=== PATIENT | female | born 2000 | race Caucasian/White ===

== ENCOUNTER 2021-06-29 17:32 | Outpatient (CLI) | payer OTHER ==
[2021-06-29 19:27] VITALS: BP 108/64; PULSE 81; RESP 18; TEMP 98.1
--- NOTE | 2021-07-01 17:09 | P.MSEPDOC ---
Presenting Problems - Arrival Data Date of Arrival on Unit: 06/29/21 Time of Arrival on Unit: 17:32 Mode of Transport: Ambulatory - Complaint OB-Reason for Admission/Chief Complaint: Rule Out SROM Comment: Pt states that she has been possible leaking since Sunday. Medical History - Information : 1 Para: 0 Term: 0 : 0 Abortions: Spontaneous or Elective: 0 Number of Living Children: 0 - Gestational Age Gestational Age by JOHN (wks/days): 34 Weeks and 5 Days Review of Systems - Review of Systems Constitutional: No problems Breast: No problems ENT: No problems Cardiovascular: No problems Respiratory: No problems Gastrointestinal: No problems Genitourinary: No problems Musculoskeletal: No problems Neurological: No problems Skin: No problems Vital Signs - Temperature Temperature: 98.1 F Temperature Source: Oral - Pulse Right Pulse Rate: 81 Pulse Assessment Method: Automatic Cuff - Respirations Respiratory Rate: 18 Oxygen Delivery Method: Room Air O2 Sat by Pulse Oximetry: 98 - Blood Pressure Right Arm Blood Pressure: 108/64 Blood Pressure Mean: 78 Blood Pressure Source: Automatic Cuff Medical Screen Scoring - Cervical Exam Dilation (cm): 0 Effacement (%): 100 Membranes: Intact - Assessment - Baby A Baseline FHR: 130 Heart Rate - NICHD Category: Category I (Normal) NST: Reactive Physician Notification - Physician Notified Physician Notified Date: 06/29/21 Physician Notified Time: 18:15 Physician: Precious Epperson Order Received: Yes Maternal Triage Index - Maternal Triage Index Presenting for scheduled procedure w/no complaint: No - Stat/Priority 1 Stat Priority 1: No - Urgent/Priority 2 Urgent Priority 2: No - Prompt/Priority 3 Prompt Priority 3: Yes Criteria Met for Priority 3: >34wks with possible SROM Disposition - Disposition OB Disposition: Discharge to home Discharge Date: 06/29/21 Discharge Time: 18:20 I agree with the RN Medical Screening Exam: Yes Case reviewed; plan agreed upon as documented in EMR&OBIX.: Yes Diagnosis: FALSE LABOR BEFORE 37 COMPLETED WEEKS OF GEST, THIRD TRI
== END 2021-06-29 18:20 | disposition home or self-care (01) ==
LOC: FBPOP 17:32
PROVIDERS: ATTEND Obstetrics & Gynecology
DX: O47.03 False labor before 37 completed weeks of gestation, third trimester (principal); Z3A.34 34 weeks gestation of pregnancy
CPT/HCPCS: 59025; 84112; 99213

== ENCOUNTER 2021-07-04 10:34 | Observation (INO) | payer OTHER ==
[2021-07-04] MEDS ORDERED: ONDANSETRON 4 MG/2 ML VIAL IVP STA (11:10)
[2021-07-04] MEDS: DEXTROSE 5%-0.9% NACL 1,000 ML IV SCH ×2 (11:29→23:40)
[2021-07-04 11:45] LABS: Amorphous Sediment,Urine Occasional /hpf; Appearance,Urine Cloudy (Clear); Bacteria,Urine Few /hpf; Bilirubin,Urine Negative (Negative); Blood,Urine Negative (Negative); Color,Urine Yellow; Glucose,Urine (UA) Negative (Negative); Ketones,Urine 1+ (Negative); Leukocyte Esterase,Urine Negative (Negative); Mucus,Urine Rare /hpf; Nitrite,Urine Negative (Negative); Protein,Urine Negative (Negative); RBC,Urine 2 /hpf (0-5); Specific Gravity,Urine 1.014 (1.001-1.035); Squamous Epithelial Cell,Urine 2 /hpf (0-4); Urobilinogen,Urine <2.0 mg/dL (<2.0); WBC,Urine 4 /hpf (0-5)
--- NOTE | 2021-07-04 12:17 | US ---
EXAMINATION TYPE: US OB >= 14 wk fetus DATE OF EXAM: 07/04/2021 COMPARISON: None CLINICAL HISTORY: Complete OB US Nausea and vomiting cramping.Hx of low JAYDA 4.8cm in office last week TECHNIQUE: Transabdominal (TA) GESTATIONAL AGE / DATING Physician Established: (35 weeks/3 days) EDC: 08/05/2021 Dates by LMP: (35 weeks/3 days) EDC: 08/05/2021 Dates by First Scan: (18 weeks/5 days) EDC: 08/07/2021 Dates by Current Scan: (33 weeks/0 days) EDC: 08/22/2021 SURVEY IUP: Single PLACENTA: Fundal PREVIA: No Previa JAYDA: 5.6 cm CERVICAL LENGTH (transabdominal: norm > 3.0cm): 3.2 cm BIOMETRY PRESENTATION: Breech LIE: Breech BPD: 8.14 cm 32 weeks 5 days HC: 32.18 cm 36 weeks / 3 days AC: 27.49 cm 31 weeks / 4 days FL: 5.98 cm 31 weeks / 3 days ESTIMATED WEIGHT IN GRAMS: 1878 grams ESTIMATED WEIGHT IN LBS/OZ: 4 lbs. 2 oz. WEIGHT PERCENTAGE BASED ON ESTABLISHED DATES: <2% HC/AC: 1.17 cm Normal FL/AC: 73% Normal HEART RATE: 153 bpm RHYTHM: Normal IMPRESSION: Single viable intrauterine in the breech presentation.
[2021-07-04] MEDS: LACTATED RINGERS 1,000 ML IV SCH ×2 (12:57→23:40)
[2021-07-04] MEDS: BETAMET ACET-BETAMETH SOD PHOS 6 MG/ML MDV IM SCH (12:57)
[2021-07-04 14:17] LABS: Basophils % (A) 0 %; Eosinophils % (A) 0 %; HCT 38.2 % (34.0-46.0); HGB 12.3 gm/dL (11.4-16.0); Lymphocytes # (A) 0.7 k/uL (1.0-4.8); Lymphocytes % (A) 5 %; MCH 29.8 pg (25.0-35.0); MCHC 32.1 g/dL (31.0-37.0); MCV 92.9 fL (80.0-100.0); Mean Platelet Volume 9.3; Monocytes # (A) 0.6 k/uL (0-1.0); Monocytes % (A) 4 %; Neutrophils # (A) 13.1 k/uL (1.3-7.7); Neutrophils % (A) 90 %; Platelet Count 193 k/uL (150-450); RBC 4.11 m/uL (3.80-5.40); RDW 12.9 % (11.5-15.5); WBC 14.5 k/uL (3.8-10.6)
[2021-07-04] MEDS ORDERED: CITRIC ACID-SODIUM CITRATE 15 ML CUP PO ONE (17:35)
--- NOTE | 2021-07-04 18:29 | P.HPOB ---
History of Present Illness H&P Date: 07/04/21 Chief Complaint: Nausea vomiting This patient is a pleasant 21-year-old 1 para 0 female estimated date of confinement 08/05/2021 estimated gestational age 35-3/7 weeks who was admitted by Dr. Epperson earlier this morning with nausea vomiting and suspected dehydration. Patient also is being followed by Dr. Epperson for oligohydramnios. She had a ultrasound in the office on June 27 which showed her JAYDA to be 4.8 cm. Biophysical profile that time was normal and so was nonstress testing. Patient presents to labor and delivery with complaints of nausea and vomiting and had repeat JAYDA here today was 5.[address] Epperson I discussed patient's care and elected to admit her for observation and IV hydration. Review of Systems Constitutional: Reports as per HPI Gastrointestinal: Reports nausea, Reports vomiting Genitourinary: Reports Menstruation: Reports amenorrhea Past Medical History Past Medical History: No Reported History History of Any Multi-Drug Resistant Organisms: None Reported Past Surgical History: Tonsillectomy Past Anesthesia/Blood Transfusion Reactions: No Reported Reaction Past Psychological History: No Psychological Hx Reported Smoking Status: Never smoker Past Alcohol Use History: None Reported Past Drug Use History: None Reported - Past Family History Father Additional Family Medical History / Comment(s): Alpha 1 Disease Medications and Allergies Home Medications Medication Instructions Recorded Confirmed Type Pnv No.95/Ferrous Fum/Folic AC 1 tab PO DAILY 07/04/21 07/04/21 History [ Multivitamin Tablet] Allergies Allergy/AdvReac Type Severity Reaction Status Date / Time No Known Allergies Allergy Verified 07/04/21 10:57 Exam Vital Signs Temp Pulse Resp BP Pulse Ox 07/04/21 12:46 97.9 F 98 16 125/66 07/04/21 12:36 98.3 F 92 16 131/67 97 Intake and Output 07/04/21 07/04/21 07/04/21 06:59 14:59 22:59 Other: # Voids 1 Weight 81.647 kg Results Result Diagrams: 07/04/21 10:25 Abnormal Lab Results - Last 24 Hours (Table) 07/04/21 07/04/21 Range/Units 10:25 11:13 WBC 14.5 H (3.8-10.6) k/uL Neutrophils # 13.1 H (1.3-7.7) k/uL Lymphocytes # 0.7 L (1.0-4.8) k/uL Urine Appearance Cloudy H (Clear) Urine Ketones 1+ H (Negative) Amorphous Sediment Occasional H (None) /hpf Urine Bacteria Few H (None) /hpf Urine Mucus Rare H (None) /hpf Assessment and Plan Assessment: This is a pleasant 21-year-old 1 para 0 female 35-3/7 weeks gestation admitted for nausea vomiting and probable dehydration also for observation due to oligohydramnios. Plan is to administer Celestone and do continuous monitoring. Patient Dr. Epperson we'll have a discussion tomorrow morning is to timing of delivery and expected antepartum testing. (1) 35 to 36 weeks gestation of Current Visit: Yes Status: Acute Code(s): VNO2386 - SNOMED Code(s): 864710940 (2) Nausea & vomiting Current Visit: Yes Status: Acute Code(s): R11.2 - NAUSEA WITH VOMITING, UNSPECIFIED SNOMED Code(s): 49320564 (3) Oligohydramnios Current Visit: Yes Status: Acute Code(s): O41.00X0 - OLIGOHYDRAMNIOS, UNSP TRIMESTER, NOT APPLICABLE OR UNSP SNOMED Code(s): 32339853
[2021-07-04 23:38] VITALS: TEMP 98.1
[2021-07-05] MEDS ORDERED: CALCIUM CARBONATE 500 MG CHEWABLE PO PRN (01:15)
[2021-07-05] MEDS: LACTATED RINGERS 1,000 ML IV SCH (06:17)
[2021-07-05] MEDS ORDERED: CITRIC ACID-SODIUM CITRATE 15 ML CUP PO ONE (06:18)
--- NOTE | 2021-07-05 08:39 | P.PN ---
Progress Note - Text Progress Note Date: 07/05/21 Pt seen at bedside this morning. She is feeling much better and keeping food down today. She has been on continuous monitoring and baby has had Category 1 heart tones since admission. She is due for her second dose of celestone today at 1pm. I will also order a BPP prior to discharge.
[2021-07-05 09:04] VITALS: BP 115/76; PULSE 114; RESP 18
--- NOTE | 2021-07-05 10:03 | US ---
EXAMINATION TYPE: US OB BPP wo non-stress DATE OF EXAM: 07/05/2021 COMPARISON: Limited Ultrasound one day earlier CLINICAL HISTORY: hx oligohydramnios. EXAM PERFORMED: Transabdominal (TA) BPP PARAMETERS: PRESENTATION: breech HEART RATE: 138 bpm RHYTHM: Normal JAYDA: 6.1 DIAPHRAGM IMAGED: yes BPP SCORIN. Breathin (1 episode of breathing of 30 second duration in 30 minutes of scanning time) 2. Movement: 2 (at least 3 discrete body movements in 30 minutes) 3. Tone: 2 (1 episode of active flexion/extension of limb) 4. JAYDA: 2 (JAYDA index > 5cm) TOTAL SCORE: 8 / 8 Single live intrauterine gestation redemonstrated. No thickening of the cervix. No placenta previa. B reech presentation is redemonstrated. NST is scored 8 out of 8 during real-time scanning. Amniotic fluid index is measured lower limits of normal. IMPRESSION: As above.
[2021-07-05] MEDS: DEXTROSE 5%-0.9% NACL 1,000 ML IV SCH (11:22)
--- NOTE | 2021-07-05 13:02 | P.DS ---
Providers Date of admission: 07/04/21 12:31 Expected date of discharge: 07/05/21 Attending physician: Precious Epperson Primary care physician: Stated None - Discharge Diagnosis(es) (1) 35 to 36 weeks gestation of Current Visit: Yes Status: Acute (2) Nausea & vomiting Current Visit: Yes Status: Resolved (3) Oligohydramnios Current Visit: Yes Status: Resolved Hospital Course: 21 year old presents at 35 weeks c/o N/V for the last 6-12 hours. She had an JAYDA done in our office last week that showed 4.8cm. yesteday JAYDA was 5.6cm. She was on continuous monitoring for the last 24 hours and given IV fluids. She is not juan. heart tones were category 1 since admission. BPP 8/8 with JAYDA of 6.1cm. did give 2 doses of celestone and will see me in office in 2 days for visit and another NST. Plan - Discharge Summary New Discharge Prescriptions: No Action Pnv No.95/Ferrous Fum/Folic AC [ Multivitamin Tablet] 1 tab PO DAILY Discharge Medication List Pnv No.95/Ferrous Fum/Folic AC [ Multivitamin Tablet] 1 tab PO DAILY 07/04/21 [History] Follow up Appointment(s)/Referral(s): Precious Epperson DO [Doctor of Osteopathic Medicine] - 1-2 Days Discharge Disposition: HOME SELF-CARE
[2021-07-05] MEDS: BETAMET ACET-BETAMETH SOD PHOS 6 MG/ML MDV IM SCH (13:10)
--- NOTE | 2021-07-06 07:42 | P.MSEPDOC ---
Presenting Problems - Arrival Data Date of Arrival on Unit: 07/04/21 Time of Arrival on Unit: 12:34 Mode of Transport: Portable - Complaint OB-Reason for Admission/Chief Complaint: Acute Nausea/Vomiting Comment: Patient presents to triage with nausea and vomitting since last night with the last time being 0830 this am. Patient state she is experiencing back pain and "some cramping, but nothing consistent." Patient states she had a Low JAYDA in the office last week of 4.8 Medical History - Information : 1 Para: 0 Term: 0 : 0 Abortions: Spontaneous or Elective: 0 Number of Living Children: 0 - Gestational Age Gestational Age by JOHN (wks/days): 35 Weeks and 3 Days Review of Systems - Review of Systems Constitutional: No problems Breast: No problems ENT: No problems Cardiovascular: No problems Respiratory: No problems Gastrointestinal: No problems Genitourinary: No problems Musculoskeletal: No problems Neurological: No problems Skin: No problems Vital Signs - Temperature Temperature: 98.1 F Temperature Source: Oral - Pulse Pulse Oximetery Pulse Rate: 114 Pulse Assessment Method: Automatic Cuff - Respirations Respiratory Rate: 18 Oxygen Delivery Method: Room Air O2 Sat by Pulse Oximetry: 100 - Blood Pressure Right Arm Blood Pressure: 115/76 Blood Pressure Mean: 89 Blood Pressure Source: Automatic Cuff Medical Screen Scoring - Cervical Exam Dilation (cm): 1 Membranes: Intact - Uterine Contractions Resting: Soft to palpation - Assessment - Baby A Baseline FHR: 135 Heart Rate - NICHD Category: Category II (Indeterminate) NST: Non-reactive Physician Notification - Physician Notified Physician Notified Date: 07/04/21 Physician Notified Time: 11:09 Physician: Precious Epperson New Order Received: Yes - Notification Comment Comment: initiate IV access given D5 NS first then LR to follow. Collect and send UA. Order a complete OB US and given patient Zofran 4mg IV push for nausea. 1230: Admit patient as an obv, continous monitoring, give Betamethasone IM and patient may have a regular diet. Maternal Triage Index - Prompt/Priority 3 Prompt Priority 3: Yes Criteria Met for Priority 3: 35 3/7 presents with nausea and vomitting since last night. FHR noted to have decelerations with minimal variabilty on arrival. NST non-reactive. Disposition - Disposition OB Disposition: Admit, Observe Transferred to:: [address] Discharge Date: 07/05/21 Discharge Time: 13:27 I agree with the RN Medical Screening Exam: Yes Case reviewed; plan agreed upon as documented in EMR&OBIX.: Yes Diagnosis: OLIGOHYDRAMNIOS, THIRD TRIMESTER, FETUS 1
== END 2021-07-05 13:28 | disposition home or self-care (01) ==
LOC: FBPOP 10:34 → 4FBP 12:31
PROVIDERS: ADMIT Obstetrics & Gynecology; ATTEND Obstetrics & Gynecology
DX: O21.2 Late vomiting of pregnancy (principal); O41.03X0 Oligohydramnios, third trimester, not applicable or unspecified; O32.1XX0 Maternal care for breech presentation, not applicable or unspecified; Z3A.35 35 weeks gestation of pregnancy; Z98.890 Other specified postprocedural states; Z83.49 Family history of other endocrine, nutritional and metabolic diseases
CPT/HCPCS: 59025; 99214; 96361; 96372 ×2; 96374; 86900; 86901; 85025; 86850; 86870; 86880; 81001; 76805; 76819; G0378 ×2; J2405; J0702 ×2

== ENCOUNTER 2021-08-02 02:18 | Inpatient (IN) | payer OTHER ==
[2021-08-02] MEDS ORDERED: OXYTOCIN 10 UNIT/ML 1 ML VIAL IM PRN (02:48)
[2021-08-02] MEDS ORDERED: AMPICILLIN 2,000 MG in SODIUM CHLORIDE 0.9% 100 ML IVPB STA (02:48)
[2021-08-02] MEDS ORDERED: METHYLERGONOVINE 0.2 MG/ML 1 ML AMP IM PRN (02:48)
[2021-08-02] MEDS ORDERED: TERBUTALINE 1 MG/ML VIAL SQ PRN (02:48)
[2021-08-02] MEDS ORDERED: LIDOCAINE 0.5% (PF) 5 MG/ML (50 ML SDV) SQ PRN (02:48)
[2021-08-02] MEDS ORDERED: CARBOPROST TROMETHAMINE 250 MCG/ML 1 ML AMP IM PRN (02:48)
[2021-08-02] MEDS ORDERED: OXYTOCIN 30 UNITS/500 ML NS 30 UNIT in SALINE 1 500ML.BAG IV SCH ×2 (03:00→22:45)
[2021-08-02] MEDS: LACTATED RINGERS 1,000 ML IV SCH ×2 (03:17→10:02)
[2021-08-02 03:40] LABS: Basophils # (A) 0.1 k/uL (0-0.2); Basophils % (A) 1 %; Eosinophils # (A) 0.1 k/uL (0-0.7); Eosinophils % (A) 1 %; HCT 34.6 % (34.0-46.0); HGB 11.2 gm/dL (11.4-16.0); Lymphocytes # (A) 1.9 k/uL (1.0-4.8); Lymphocytes % (A) 21 %; MCH 29.3 pg (25.0-35.0); MCHC 32.4 g/dL (31.0-37.0); MCV 90.6 fL (80.0-100.0); Mean Platelet Volume 8.8; Monocytes # (A) 0.6 k/uL (0-1.0); Monocytes % (A) 7 %; Neutrophils # (A) 6.2 k/uL (1.3-7.7); Neutrophils % (A) 68 %; Platelet Count 251 k/uL (150-450); RBC 3.82 m/uL (3.80-5.40); RDW 14.6 % (11.5-15.5); WBC 9.1 k/uL (3.8-10.6)
--- NOTE | 2021-08-02 06:32 | P.HPOB ---
History of Present Illness H&P Date: 08/02/21 Chief Complaint: SROM 21 year old presents at 39 weeks with spontaneous rupture of membranes. She thinks she started leaking a few days ago but did not come in because she did not have contractions. She is not juan. Cervix is 2/70/-2. Review of Systems All systems: negative Constitutional: Denies chills, Denies fever Eyes: denies blurred vision, denies pain Ears, nose, mouth and throat: Denies headache, Denies sore throat Cardiovascular: Denies chest pain, Denies shortness of breath Respiratory: Denies cough Gastrointestinal: Denies abdominal pain, Denies diarrhea, Denies nausea, Denies vomiting Genitourinary: Denies dysuria, Denies hematuria Musculoskeletal: Denies myalgias Integumentary: Denies pruritus, Denies rash Neurological: Denies numbness, Denies weakness Psychiatric: Denies anxiety, Denies depression Endocrine: Denies fatigue, Denies weight change Past Medical History Past Medical History: No Reported History History of Any Multi-Drug Resistant Organisms: None Reported Past Surgical History: Tonsillectomy Past Anesthesia/Blood Transfusion Reactions: No Reported Reaction Past Psychological History: No Psychological Hx Reported Smoking Status: Never smoker Past Alcohol Use History: None Reported Past Drug Use History: None Reported - Past Family History Father Additional Family Medical History / Comment(s): Alpha 1 Disease Medications and Allergies Home Medications Medication Instructions Recorded Confirmed Type Pnv No.95/Ferrous Fum/Folic AC 1 tab PO DAILY 07/04/21 08/02/21 History [ Multivitamin Tablet] Allergies Allergy/AdvReac Type Severity Reaction Status Date / Time No Known Allergies Allergy Verified 08/02/21 02:34 Exam Osteopathic Statement: *. No significant issues noted on an osteopathic structural exam other than those noted in the History and Physical/Consult. Vital Signs Temp Pulse Resp BP Pulse Ox 08/02/21 02:23 98.5 F 80 16 130/68 98 Intake and Output 08/01/21 08/01/21 08/02/21 14:59 22:59 06:59 Other: # Voids 2 Weight 84.822 kg Heart: Regular rate and rhythm Lungs: Clear to auscultation bilaterally Abdomen: Soft, nontender Extremities: Negative Homans sign Results Result Diagrams: 08/02/21 03:15 Abnormal Lab Results - Last 24 Hours (Table) 08/02/21 Range/Units 03:15 Hgb 11.2 L (11.4-16.0) gm/dL Assessment and Plan (1) Spontaneous rupture of amniotic membranes Current Visit: Yes Status: Acute Code(s): [id number] - SNOMED Code(s): 16 7005132 Plan: 1. admit to FBP 2. antibiotics 3. pitocin augmentation
[2021-08-02] MEDS: AMPICILLIN 1,000 MG in SODIUM CHLORIDE 0.9% 50 ML IVPB SCH ×4 (08:02→20:09)
[2021-08-02] MEDS ORDERED: BUTORPHANOL 1 MG/ML 1 ML VIAL IV PRN (11:11)
[2021-08-02] MEDS ORDERED: CITRIC ACID-SODIUM CITRATE 15 ML CUP PO ONE ×2 (19:42→21:10)
--- NOTE | 2021-08-02 21:14 | P.PN ---
Progress Note - Text Progress Note Date: 08/02/21 Patient has been 4-5 cm for approximately 9 hours. There is no further descent to the head beyond -1 station. heart tones are category 1. Patient's having regular contractions on 35 milliunits of Pitocin. I did have a long discussion with the patient and her family about continuing with labor versus proceeding with delivery by section. At this point it appears that she has failure to progress and given the light of extended prolonged rupture were going to proceed with delivery by section this time. Patient does understand surgery and risks. Consent was obtained and proceed with delivery now
[2021-08-02] MEDS ORDERED: LANOLIN CREAM 5 GM TUBE TOPICAL PRN (22:32)
[2021-08-02] MEDS ORDERED: METOCLOPRAMIDE 5 MG/ML 2 ML VIAL IVP PRN (22:32)
[2021-08-02] MEDS ORDERED: ZOLPIDEM 5 MG TAB PO PRN (22:32)
[2021-08-02] MEDS ORDERED: SIMETHICONE 80 MG CHEWABLE PO PRN (22:32)
[2021-08-02] MEDS ORDERED: NALOXONE 0.4 MG/ML 1 ML VIAL IV PRN ×2 (22:32→22:40)
[2021-08-02] MEDS ORDERED: HYDROmorphone PCA 10 MG/50 ML BAG IV PRN (22:32)
[2021-08-02] MEDS ORDERED: ONDANSETRON 4 MG/2 ML VIAL IVP PRN (22:32)
[2021-08-02] MEDS ORDERED: diphenhydrAMINE 50 MG/ML 1 ML VIAL IVP PRN (22:32)
[2021-08-02] MEDS ORDERED: diphenhydrAMINE 25 MG CAP PO PRN (22:32)
[2021-08-02] MEDS ORDERED: Rhogam IMMUNE GLOBULIN 1,500 UNIT/1 ML IM ONE (22:32)
[2021-08-02] MEDS ORDERED: HYDROmorphone 0.5 MG/0.5 ML SYRINGE IVP PRN (22:40)
--- NOTE | 2021-08-02 22:52 | P.OP ---
Date of Procedure: 08/02/21 Preoperative Diagnosis: #1: 39-4/7 week intrauterine . #2: Prolonged premature rupture membranes #3: Failure to progress in labor. Postoperative Diagnosis: #1: Same. #2: Clinical chorioamnionitis Procedure(s) Performed: Primary low transverse section Anesthesia: GETA, epidural, other (Patient has a general anesthetic secondary to ineffective epidural) Surgeon: Marvin Spring Leather Whitener #1: Antwan Sauceda Estimated Blood Loss (ml): 800 Pathology: other (Placenta) Condition: stable Disposition: floor Indications for Procedure: Please see dictated H&P for intimate details of this patient's admission. In brief summary this is a pleasant 21-year-old 1 para 0 female 39-4/7 weeks gestation who is admitted earlier this morning with prolonged premature rupture of membranes. Patient may have been ruptured for at least 3 or 4 days prior to presenting to the hospital. Immediately upon presentation patient is given IV antibiotics and has Pitocin induction of labor. Patient progresses to approximately 45 cm dilated and despite 35 milliunits of Pitocin and 9 hours of adequate labor she has no descent of the head her progression. At this point I do have a discussion with the patient and her family and after discus sing options as far as continue labor versus delivery she wished to proceed with section for delivery. Patient understands this surgery and risks and risks of infection, bleeding, possible injury bowel, bladder, vessels, and/or other organs. All the patient's questions are answered written consent is obtained Operative Findings: This is a vigorous viable female Apgars are 8 and 9. Infant has spontaneous respiration and good cry. There was an odor to the amniotic fluid. Description of Procedure: This patient has a Hutton catheter placed to straight drain. She is subsequently taken to the operating room where the epidural was dosed up. Unfortunately despite prolonged time the epidural was ineffective on the patient's left side. After discussion with the patient anesthesia we elected proceed with general anesthetic for delivery. At this time she has abdominal prep and drape. The appropriate timeout was taken. Patient subsequently undergoes rapid sequence general endotracheal anesthesia. With an adequate anesthesia scalpels taken Pfannenstiel skin incision is then made. A second scalpel is taken down the fas canelo and the fascia scored with a knife. Fascial incision is extended bilaterally using the Pino scissors. Fascia is then dissected off the rectus muscles sharply. Rectus muscles are the peritoneum was identified and sharply. Peritoneal incision extended superior and inferior without difficulty. Bladder blade is then placed. Bladder peritoneum was then taken down sharply. Scalpels and taken low transverse uterine incision is then made. Using a hemostat I enter the uterine cavity bluntly. There is loss of clear fluid. Fluid does have somewhat of an odor to it. The incision is extended bluntly. Infant is found to be in the occiput transverse presentation. Infant's head was guided through the incision with fundal pressure delivered. Mouth and nares are bulb suctioned. There is no evidence of a nuchal cord. With more fundal pressure deliver the rest this infant's body. This is a vigorous viable female Apgars are 8 and 9 delivery time was 2155 hrs. After delivery of the infant the umbilical cord is doubly clamped and cut note the umbilical cord is quite thin. The placenta is then manually extracted intact. The membranes are teased out they are somewhat adherent but after thorough exploration I feel all have been removed. The uterine incision demarcated with Richey clamps. Uterine incision then closed using 0 Vicryl running locked fashion. 2 layers are done. Hemostasis is noted uterus is boggy therefore she is given some IV Pitocin and IV Methergine. With this done the uterus firms up well. The bladder peritoneum is closed using a 3-0 Vicryl running fashion. Excess fluid is removed from the abdomen and pelvis. The parietal peritoneum was then closed using 0 Vicryl running fashion. Rectus muscles are closed using 0 Vicryl interrupted fashion. Fascial incision is closed using 0 PDS. Fascial incision is intact and hemostatic. Subcutaneous tissues and closed using a 3-0 Vicryl. Skin is and closed using roque. All counts are correct 3. There are no complications. and mother are taken to the birthing suite in satisfactory condition
[2021-08-03] MEDS: LACTATED RINGERS 1,000 ML IV SCH ×2 (01:31→03:27)
[2021-08-03] MEDS: ACETAMINOPHEN TAB 500 MG TAB PO SCH ×4 (01:41→20:31)
[2021-08-03] MEDS: KETOROLAC 15 MG/ML 1 ML VIAL IVP SCH ×2 (04:55→11:13)
[2021-08-03] MEDS: METHYLERGONOVINE 0.2 MG TAB PO SCH ×2 (04:56→10:23)
[2021-08-03] MEDS: IBUPROFEN 600 MG TAB PO SCH ×4 (04:58→23:44)
--- NOTE | 2021-08-03 07:11 | P.PN ---
Progress Note - Text Progress Note Date: 08/03/21 (]) Postoperative day 1 status post section under general endotracheal anesthesia, patient had epidural catheter which was ordered with lidocaine 2% 20 mL, but then after 25 minutes patient continued to have unilateral block on the right side she had no block on the left side, for this reason the dissection was done under general endotracheal anesthesia, patient was giving epidural morphine, for postoperative analgesia, patient doing well, there is no anesthesia related complications, currently patient denies any pain she had minimal itching ,Patient had no headache, vital signs stable , Assessment and plan= postop day 1 status post , doing well there is no anesthesia related complication.
--- NOTE | 2021-08-03 08:07 | P.PNOBGPC ---
Subjective - Subjective Principal diagnosis: Status post primary low transverse postop day #1 Interval history: Patient seen and examined. Denies nausea, vomiting, chest pain, shortness of breath or any calf pain. Patient reports: Reports appetite normal, Reports voiding normally, Reports pain well controlled, Reports ambulating normally : doing well Objective - Vital Signs Latest vital signs: Vital Signs Temp Pulse Resp BP Pulse Ox 08/03/21 05:00 17 08/03/21 04:45 98.4 F 73 17 132/67 98 08/03/21 03:40 98 08/03/21 03:00 16 08/03/21 01:40 17 08/03/21 00:01 98.2 F 67 16 137/65 08/03/21 00:00 99.2 F 78 16 130/68 08/02/21 23:40 98.6 F 82 16 132/72 98 08/02/21 23:31 99.0 F 73 16 136/71 100 08/02/21 23:22 98.6 F 72 16 135/78 08/02/21 22:46 98.2 F 72 16 08/02/21 22:40 77 16 100 08/02/21 22:32 98 08/02/21 22:31 97.9 F 87 16 134/72 Intake and Output 08/02/21 08/03/21 08/03/21 22:59 06:59 14:59 Intake Total 200 Output Total 300 4200 Balance -300 -4000 Intake: IV 200 Output: Urine 300 2250 Estimated Blood Loss 1200 Output, Quantitative 750 Blood Loss - Exam Lungs: bilateral: normal Chest: Normal S1, Normal S2 Extremities: Present: normal Abdomen: Present: normal appearance, soft. Absent: distention, tenderness Incision: Present: normal, dry, intact Uterus: Present: normal, firm Assessment and Plan (1) Spontaneous rupture of amniotic membranes Current Visit: Yes Status: Resolved Code(s): [id number] - SNOMED Code(s): 698645402 (2) Status post primary low transverse section Current Visit: Yes Status: Acute Code(s): Z98.891 - HISTORY OF UTERINE SCAR FROM PREVIOUS SURGERY SNOMED Code(s): 416176665 Plan: 1. Increase ambulation 2. Regular diet 3. By mouth pain medications
[2021-08-03 08:09] LABS: Basophils % (A) 0 %; Eosinophils # (A) 0.1 k/uL (0-0.7); Eosinophils % (A) 1 %; HCT 32.7 % (34.0-46.0); Lymphocytes # (A) 1.1 k/uL (1.0-4.8); Lymphocytes % (A) 12 %; MCH 30.2 pg (25.0-35.0); MCHC 33.6 g/dL (31.0-37.0); MCV 89.8 fL (80.0-100.0); Mean Platelet Volume 9.1; Monocytes # (A) 0.5 k/uL (0-1.0); Monocytes % (A) 5 %; Neutrophils # (A) 7.2 k/uL (1.3-7.7); Neutrophils % (A) 80 %; Platelet Count 197 k/uL (150-450); RBC 3.64 m/uL (3.80-5.40); RDW 15.2 % (11.5-15.5)
[2021-08-03] MEDS: SENNOSIDES-DOCUSATE SODIUM 1 EACH TAB PO SCH ×2 (08:25→19:38)
[2021-08-04] MEDS: ACETAMINOPHEN TAB 500 MG TAB PO SCH ×3 (02:38→14:53)
[2021-08-04] MEDS: IBUPROFEN 600 MG TAB PO SCH ×3 (06:01→17:43)
--- NOTE | 2021-08-04 08:16 | P.PNOBGPC ---
Subjective - Subjective Principal diagnosis: Status post primary low transverse postop day #2 Interval history: Sincerely and examined. Denies nausea, vomiting, chest pain, shortness of breath or calf pain. Pain is well-controlled. Her baby does have some jaundice and is being treated with bili lights. Objective - Vital Signs Latest vital signs: Vital Signs Temp Pulse Resp BP Pulse Ox 08/03/21 23:50 97.6 F 68 17 125/70 97 08/03/21 23:49 97 08/03/21 19:48 98.5 F 64 17 124/71 98 08/03/21 19:47 17 98 08/03/21 18:00 17 08/03/21 16:00 98.4 F 60 17 118/85 98 08/03/21 14:00 17 08/03/21 12:00 98.9 F 76 16 125/78 97 08/03/21 10:00 16 08/03/21 08:30 97.7 F 97 17 129/79 97 - Exam Lungs: bilateral: normal Chest: Normal S1, Normal S2 Extremities: Present: normal Abdomen: Present: normal appearance, soft. Absent: distention, tenderness Incision: Present: normal, dry, intact Uterus: Present: normal, firm Assessment and Plan (1) Spontaneous rupture of amniotic membranes Current Visit: Yes Status: Resolved Code(s): ZBQ0371 - SNOMED Code(s): 896197271 (2) Status post primary low transverse section Current Visit: Yes Status: Acute Code(s): Z98.891 - HISTORY OF UTERINE SCAR FROM PREVIOUS SURGERY SNOMED Code(s): 934071953 Plan: 1. Increase ambulation 2. Regular diet
[2021-08-04] MEDS: SENNOSIDES-DOCUSATE SODIUM 1 EACH TAB PO SCH (08:44)
[2021-08-04 16:37] VITALS: BP 122/62; PULSE 78; RESP 16; TEMP 98.3
== END 2021-08-04 20:34 | disposition home or self-care (01) | DRG 786 ==
LOC: FBPOP 02:18 → 4FBP 02:47
PROVIDERS: ADMIT Obstetrics & Gynecology; ATTEND Obstetrics & Gynecology
PROC: 10D00Z1 Extraction of Products of Conception, Low, Open Approach (ICD-10-PCS; principal; 2021-08-02 21:30)
DX: O42.92 Full-term premature rupture of membranes, unspecified as to length of time between rupture and onset of labor (principal); O41.1230 Chorioamnionitis, third trimester, not applicable or unspecified; O62.2 Other uterine inertia; Z37.0 Single live birth; Z3A.39 39 weeks gestation of pregnancy
CPT/HCPCS: 59025; 85025; 85461; 86850; 86900; 86901; 99213

== ENCOUNTER 2024-05-22 10:02 | Inpatient (IN) | payer OTHER ==
[2024-05-22] MEDS ORDERED: OXYTOCIN 10 UNIT/ML 1 ML VIAL IM PRN (10:44)
[2024-05-22] MEDS ORDERED: TRANEXAMIC 1,000 MG/100ML-NACL 1,000 MG in EMPTY BAG 1 BAG IV PRN (10:44)
[2024-05-22] MEDS ORDERED: miSOPROStoL 200 MCG TAB PO PRN (10:44)
[2024-05-22] MEDS ORDERED: METHYLERGONOVINE 0.2 MG/ML 1 ML AMP IM PRN (10:44)
[2024-05-22] MEDS ORDERED: CARBOPROST TROMETHAMINE 250 MCG/ML 1 ML AMP IM PRN (10:44)
[2024-05-22 10:55] LABS: Basophils % (A) 0 %; Eosinophils # (A) 0.1 k/uL (0-0.7); Eosinophils % (A) 1 %; HCT 33.3 % (34.0-46.0); HGB 11.3 gm/dL (11.4-16.0); Lymphocytes # (A) 1.5 k/uL (1.0-4.8); Lymphocytes % (A) 20 %; MCH 29.7 pg (25.0-35.0); MCV 87.3 fL (80.0-100.0); Mean Platelet Volume 8.4; Monocytes # (A) 0.4 k/uL (0-1.0); Monocytes % (A) 6 %; Neutrophils # (A) 5.3 k/uL (1.3-7.7); Neutrophils % (A) 71 %; Platelet Count 243 k/uL (150-450); RBC 3.82 m/uL (3.80-5.40); RDW 13.6 % (11.5-15.5); WBC 7.5 k/uL (3.8-10.6)
[2024-05-22] MEDS: LACTATED RINGERS 1,000 ML IV ONE (11:00)
[2024-05-22] MEDS: CITRIC ACID-SODIUM CITRATE 15 ML CUP PO ONE (11:40)
[2024-05-22] MEDS ORDERED: NALBUPHINE (ANES) 10 MG/ML - 1 ML AMP ONE (12:10)
[2024-05-22] MEDS ORDERED: OXYTOCIN 10 UNIT/ML 1 ML VIAL ONE (12:10)
[2024-05-22] MEDS ORDERED: ONDANSETRON 4 MG/2 ML VIAL ONE (12:10)
[2024-05-22] MEDS ORDERED: MORPHINE SULFATE (PF) 0.3 MG/0.3 ML SYR ONE (12:10)
[2024-05-22] MEDS ORDERED: ePHEDrine 50 MG/ML 1 ML VIAL ONE (12:10)
[2024-05-22] MEDS ORDERED: KETOROLAC 15 MG/ML 1 ML VIAL ONE (12:10)
[2024-05-22] MEDS ORDERED: NALOXONE 0.4 MG/ML 1 ML VIAL IV PRN ×2 (12:35→12:46)
[2024-05-22] MEDS ORDERED: diphenhydrAMINE 50 MG/ML 1 ML VIAL IVP PRN ×3 (12:35→12:46)
[2024-05-22] MEDS ORDERED: HYDROmorphone 0.5 MG/0.5 ML SYRINGE IVP PRN (12:35)
[2024-05-22] MEDS ORDERED: diphenhydrAMINE 25 MG CAP PO PRN (12:46)
[2024-05-22] MEDS ORDERED: ZOLPIDEM 5 MG TAB PO PRN (12:46)
[2024-05-22] MEDS ORDERED: diphenhydrAMINE 50 MG CAP PO PRN (12:46)
[2024-05-22] MEDS ORDERED: LANOLIN CREAM 1 GM TUBE TOPICAL PRN (12:46)
--- NOTE | 2024-05-22 12:50 | P.OP ---
Date of Procedure: 05/22/24 Preoperative Diagnosis: 1. at 38 weeks 3 days 2. SGA Postoperative Diagnosis: same Procedure(s) Performed: repeat low transverse Anesthesia: spinal Surgeon: Precious Epperson Inhalation Therapist #1: Mica Hoyos Estimated Blood Loss (ml): 392 IV fluids (ml): 700 Urine output (ml): 200 Pathology: other (placenta) Condition: stable Disposition: floor Operative Findings: viable male. 9,9 weight 6# Description of Procedure: Patient was taken to the operating room where spinal anesthesia was found be adequate. She was prepped and draped in normal sterile fashion in dorsal supine position with a leftward tilt. Pfannenstiel skin incision was made the scalpel and carried through to the underlying layer of fascia with the scalpel. Fascia was incised in midline and carried bilaterally with the Pino scissors. The superior aspect of the fascial incision was grasped with Miesha clamps elevated and the underlying rectus muscles dissected off with the Pino's. Attention was then turned to inferior aspect of same incision which in a similar fashion was grasped tented up and the underlying rectus muscles dissected off with the Pino's. The rectus muscles were the midline and the peritoneum was identified tented up and entered sharply with the scalpel. The incision was extended superiorly and inferiorly with good visualization of the bladder. The bladder blade was inserted and the vesicouterine peritoneum was incised the Metzenbaums then carried bilaterally and bladder flap created digitally. A low transverse incision was then made on the uterus with the scalpel. This was carried bilaterally and digital manner. Infant's head delivered atraumatically, nose and mouth bulb suctioned, cord clamped and cut, handed off to waiting nurses. Apgars 9,9, weight 6 lbs. Placenta delivered manually, intact with three-vessel cord. The uterus is exteriorized and cleared of all clots and debris. The uterine incision was closed with 0 Vicryl in a running locked fashion. Second layer of the same sutures used in imbricating fashion to obtain excellent hemostasis. Both ovaries and tubes appeared normal. The uterus was placed back into the abdomen. The fascia was reapproximated using 0 Vicryl in a running fashion. The subcutaneous tissues closed with 3-0 Vicryl running fashion. The skin was closed roque. Patient tolerated the procedure well, sponge and instrument counts were correct times 2 and she was taken to the recovery room in stable condition.
[2024-05-22] MEDS ORDERED: OXYTOCIN 30 UNITS/500 ML NS 30 UNIT in SALINE 1 500ML.BAG IV SCH (13:00)
[2024-05-22] MEDS: LACTATED RINGERS 1,000 ML IV SCH (14:50)
[2024-05-22] MEDS: ACETAMINOPHEN TAB 500 MG TAB PO SCH (16:08)
[2024-05-22] MEDS: METOCLOPRAMIDE 5 MG/ML 2 ML VIAL IVP PRN (17:23)
[2024-05-22 18:31] VITALS: RESP 16
[2024-05-22] MEDS: ONDANSETRON 4 MG/2 ML VIAL IVP PRN (19:05)
[2024-05-22] MEDS: SENNOSIDES-DOCUSATE SODIUM 1 EACH TAB PO SCH (20:44)
[2024-05-22] MEDS: KETOROLAC 15 MG/ML 1 ML VIAL IVP PRN (20:50)
[2024-05-22] MEDS: SIMETHICONE 80 MG CHEWABLE PO PRN (20:51)
[2024-05-23 07:01] LABS: Basophils % (A) 0 %; Eosinophils # (A) 0.1 k/uL (0-0.7); Eosinophils % (A) 1 %; HCT 29.6 % (34.0-46.0); HGB 10.3 gm/dL (11.4-16.0); Lymphocytes # (A) 1.3 k/uL (1.0-4.8); Lymphocytes % (A) 14 %; MCH 30.7 pg (25.0-35.0); MCHC 34.7 g/dL (31.0-37.0); MCV 88.6 fL (80.0-100.0); Mean Platelet Volume 8.3; Monocytes # (A) 0.8 k/uL (0-1.0); Monocytes % (A) 8 %; Neutrophils # (A) 7.2 k/uL (1.3-7.7); Neutrophils % (A) 75 %; Platelet Count 217 k/uL (150-450); RBC 3.34 m/uL (3.80-5.40); RDW 13.7 % (11.5-15.5); WBC 9.5 k/uL (3.8-10.6)
--- NOTE | 2024-05-23 07:37 | P.HPOB ---
History of Present Illness H&P Date: 05/22/24 Chief Complaint: SGA, previous c/s 24 year old presents at 38 weeks 3 days for repeat low transverse c- section. the baby has been measuring small for the last several weeks. Review of Systems All systems: negative Constitutional: Denies chills, Denies fever Eyes: denies blurred vision, denies pain Ears, nose, mouth and throat: Denies headache, Denies sore throat Cardiovascular: Denies chest pain, Denies shortness of breath Respiratory: Denies cough Gastrointestinal: Denies abdominal pain, Denies diarrhea, Denies nausea, Denies vomiting Genitourinary: Denies dysuria, Denies hematuria Musculoskeletal: Denies myalgias Integumentary: Denies pruritus, Denies rash Neurological: Denies numbness, Denies weakness Psychiatric: Denies anxiety, Denies depression Endocrine: Denies fatigue, Denies weight change Past Medical History Past Medical History: No Reported History History of Any Multi-Drug Resistant Organisms: None Reported Past Surgical History: Tonsillectomy Past Anesthesia/Blood Transfusion Reactions: No Reported Reaction Past Psychological History: No Psychological Hx Reported Smoking Status: Never smoker Past Alcohol Use History: None Reported Past Drug Use History: None Reported - Past Family History Father Additional Family Medical History / Comment(s): Alpha 1 Disease Medications and Allergies Home Medications Medication Instructions Recorded Confirmed Type Pnv No.95/Ferrous Fum/Folic AC 1 tab PO DAILY 07/04/21 05/22/24 History [ Multivitamin Tablet] Allergies Allergy/AdvReac Type Severity Reaction Status Date / Time No Known Allergies Allergy Verified 05/22/24 10:43 Exam Osteopathic Statement: *. No significant issues noted on an osteopathic structural exam other than those noted in the History and Physical/Consult. Vital Signs Temp Pulse Resp BP Pulse Ox 05/23/24 05:58 16 05/23/24 04:00 16 05/23/24 02:00 16 98 05/23/24 00:00 98.0 F 65 16 111/62 97 05/22/24 22:00 16 05/22/24 20:50 97.7 F 74 16 123/74 97 05/22/24 18:00 16 98 05/22/24 16:00 98.5 F 60 18 120/68 99 05/22/24 14:55 97.5 F L 58 L 18 121/67 99 05/22/24 14:34 75 18 120/66 99 05/22/24 14:19 67 18 112/64 99 05/22/24 14:04 75 18 112/64 100 05/22/24 13:49 75 18 118/55 99 05/22/24 13:35 18 100 05/22/24 13:34 78 18 114/78 100 05/22/24 13:19 74 17 118/59 100 05/22/24 13:04 69 18 118/56 98 05/22/24 12:49 97.5 F L 77 18 139/55 99 05/22/24 12:35 18 100 05/22/24 10:54 97.4 F L 64 18 122/72 99 Intake and Output 05/22/24 05/23/24 05/23/24 22:59 06:59 14:59 Intake Total 100 0 Output Total 300 900 Balance -200 -900 Intake: Oral 100 0 Output: Urine 300 900 Straight 900 Uretheral (Hutton) 300 Heart: Regular rate and rhythm Lungs: Clear to auscultation bilaterally Abdomen: Soft, nontender Extremities: Negative Homans sign Results Result Diagrams: 05/23/24 06:33 Abnormal Lab Results - Last 24 Hours (Table) 05/22/24 05/23/24 Range/Units 10:45 06:33 RBC 3.34 L (3.80-5.40) m/uL Hgb 11.3 L 10.3 L (11.4-16.0) gm/dL Hct 33.3 L 29.6 L (34.0-46.0) % Assessment and Plan (1) Small for gestational age fetus Current Visit: Yes Status: Acute Code(s): [id number] - SNOMED Code(s): 008379787 (2) 38 weeks gestation of Current Visit: Yes Status: Acute Code(s): Z3A.38 - 38 WEEKS GESTATION OF SNOMED Code(s): 82584570 (3) Previous section Current Visit: Yes Status: Acute Code(s): Z98.891 - HISTORY OF UTERINE SCAR FROM PREVIOUS SURGERY SNOMED Code(s): 711299044 Plan: 1. repeat low transverse
--- NOTE | 2024-05-23 07:38 | P.PNOBGPC ---
Subjective - Subjective Principal diagnosis: S/P RLTCS POD #1 Interval history: Patient seen and examined. Denies nausea, vomiting, chest pain, shortness of breath or calf pain. Patient reports: Reports appetite normal, Reports voiding normally, Reports pain well controlled, Reports ambulating normally : doing well Objective - Vital Signs Latest vital signs: Vital Signs Temp Pulse Resp BP Pulse Ox 05/23/24 05:58 16 05/23/24 04:00 16 05/23/24 02:00 16 98 05/23/24 00:00 98.0 F 65 16 111/62 97 05/22/24 22:00 16 05/22/24 20:50 97.7 F 74 16 123/74 97 05/22/24 18:00 16 98 05/22/24 16:00 98.5 F 60 18 120/68 99 05/22/24 14:55 97.5 F L 58 L 18 121/67 99 05/22/24 14:34 75 18 120/66 99 05/22/24 14:19 67 18 112/64 99 05/22/24 14:04 75 18 112/64 100 05/22/24 13:49 75 18 118/55 99 05/22/24 13:35 18 100 05/22/24 13:34 78 18 114/78 100 05/22/24 13:19 74 17 118/59 100 05/22/24 13:04 69 18 118/56 98 05/22/24 12:49 97.5 F L 77 18 139/55 99 05/22/24 12:35 18 100 05/22/24 10:54 97.4 F L 64 18 122/72 99 Intake and Output 05/22/24 05/23/24 05/23/24 22:59 06:59 14:59 Intake Total 100 0 Output Total 300 900 Balance -200 -900 Intake: Oral 100 0 Output: Urine 300 900 Straight 900 Uretheral (Hutton) 300 - Exam Lungs: bilateral: normal Chest: Normal S1, Normal S2 Extremities: Present: normal Abdomen: Present: normal appearance, soft. Absent: distention, tenderness Incision: Present: normal, dry, intact Uterus: Present: normal, firm - Labs Labs: Abnormal Lab Results - Last 24 Hours (Table) 05/22/24 05/23/24 Range/Units 10:45 06:33 RBC 3.34 L (3.80-5.40) m/uL Hgb 11.3 L 10.3 L (11.4-16.0) gm/dL Hct 33.3 L 29.6 L (34.0-46.0) % Assessment and Plan (1) Small for gestational age fetus Current Visit: Yes Status: Resolved Code(s): [id number] - SNOMED Code(s): 2 46056534 (2) 38 weeks gestation of Current Visit: Yes Status: Resolved Code(s): Z3A.38 - 38 WEEKS GESTATION OF SNOMED Code(s): 32263785 (3) Previous section Current Visit: Yes Status: Resolved Code(s): Z98.891 - HISTORY OF UTERINE SCAR FROM PREVIOUS SURGERY SNOMED Code(s): 416616550 (4) Status post repeat low transverse section Current Visit: Yes Status: Acute Code(s): Z98.891 - HISTORY OF UTERINE SCAR FROM PREVIOUS SURGERY SNOMED Code(s): 655151015 Plan: 1. Increase ambulation 2. Regular diet
--- NOTE | 2024-05-23 09:19 | P.PN ---
Progress Note - Text Progress Note Date: 05/23/24 (2314) Anesthesia Postop day 1 Subjective: Status Post section with Duramorph. Patient seen and examined. Doing well without complaint. VAS out of 10. Denies nausea vomiting. Mild pruritus. Denies fever. Gross lower extremity strength intact. Without apparent anesthetic complications. Objective: Vital signs reviewed Heart: Regular Rate Lungs: Good chest excursion Abdomen: Appears nondistended Assessment: Status post section with Duramorph postop day 1 Plan: 1. Continue current care with your medical management. Anticipated end to the duration of the Duramorph around surgery time today. You may see increased pain needs around this time. 2. This note was dictated using [employer] software. Please be advised there is a potential for misspellings or errors in natural resource specialist.
[2024-05-23] MEDS: IBUPROFEN 800 MG TAB PO SCH (13:37)
[2024-05-24 08:54] VITALS: BP 110/63; PULSE 60; TEMP 98
--- NOTE | 2024-05-24 09:21 | P.DS ---
Providers Date of admission: 05/22/24 10:02 Expected date of discharge: 05/24/24 Attending physician: Precious Epperson Primary care physician: [facility] Course: Ms. Park is a 24 year old now POD#2 s/p scheduled repeat section. Please reference the operative report for more information on the surgery itself. The patient is doing well this morning and had no acute events overnight. She has no complaints this morning. She reports minimal lochia, passing flatus, voiding without difficulty, ambulating, and eating/drinking without nausea or vomiting. Infant doing well at bedside, s/p circumcision. She denies chest pain, shortness of breathing, fevers, or chills overnight. She denies pain or swelling in the legs. Postoperative restrictions are reviewed with the patient including pelvic rest for 6 weeks, no lifting heavier than 15 pounds for 6 weeks. The patient is encouraged to call the office if she experiences any heavy bleeding, foul-smelling discharge, breast complaints, or any if she has any other concerns. She will follow up in the office with Dr. Epperson in 2 weeks for postoperative exam. All questions are answered. Patient Condition at Discharge: Good Plan - Discharge Summary New Discharge Prescriptions: New Ibuprofen [Motrin] 600 mg PO Q6HR PRN #30 tab PRN Reason: Mild Pain (Scale 1 To 3) Acetaminophen Tab [Tylenol] 650 mg PO Q6H PRN #30 tab PRN Reason: Mild Pain (Scale 1 To 3) No Action Pnv No.95/Ferrous Fum/Folic AC [ Multivitamin Tablet] 1 tab PO DAILY Discharge Medication List Pnv No.95/Ferrous Fum/Folic AC [ Multivitamin Tablet] 1 tab PO DAILY 07/04/21 [History] Acetaminophen Tab [Tylenol] 650 mg PO Q6H PRN #30 tab 05/24/24 [Rx] Ibuprofen [Motrin] 600 mg PO Q6HR PRN #30 tab 05/24/24 [Rx] Follow up Appointment(s)/Referral(s): Precious Epperson DO [Doctor of Osteopathic Medicine] - 06/04/24 1:15 pm (Post Appointment 07/02/24 at 1:15 PM) Activity/Diet/Wound Care/Special Instructions: Instructions 1. Do not begin any exercise program for 3 weeks. 2. Do not resume sexual relations for 6 weeks or longer if uncomfortable. 3. You may take tub baths or showers at any time. 4. You may use tampons if desired after 6 weeks. 5. Keep any areas repaired with stitches clean and dry. 6. If you are not nursing, wear a good fitting, supportive bra during the day and limit fluid intake for at least 1 week to prevent breast engorgement. 7. Call the office, , within the next week to make appointment for your 6 week checkup if it has not already been made. 8. Report any of the following occurrences to the doctor promptly: a. Heavy, excessive bleeding b. Chills, fever c. Burning or frequency of urination d. Pain or redness and breasts if nursing e. Increasing pain or swelling of vulva (stitches). In addition to the above instructions, the following additional should be followed: 1. No heavy lifting or straining (exercising) until after 6 week checkup. 2. Keep abdominal incision clean and dry: You may wear a dressing if more comfortable. 3. Make office appointment for 2 weeks after delivery date. Discharge Disposition: HOME SELF-CARE
== END 2024-05-24 14:15 | disposition home or self-care (01) | DRG 540 ==
LOC: 4FBP 10:02
PROVIDERS: ADMIT Obstetrics & Gynecology; ATTEND Obstetrics & Gynecology
PROC: 10D00Z1 Extraction of Products of Conception, Low, Open Approach (ICD-10-PCS; principal; 2024-05-22 12:00)
DX: O34.211 Maternal care for low transverse scar from previous cesarean delivery (principal); O36.5930 Maternal care for other known or suspected poor fetal growth, third trimester, not applicable or unspecified; O99.73 Diseases of the skin and subcutaneous tissue complicating the puerperium; L29.9 Pruritus, unspecified; Z3A.38 38 weeks gestation of pregnancy; Z37.0 Single live birth
CPT/HCPCS: 85025; 86850; 86900; 86901; 88307